=== PATIENT | male | born 1970 | race Caucasian/White ===

== ENCOUNTER 2017-09-17 10:36 | Emergency (ER) | payer MEDICAID, OTHER ==
[2017-09-17] MEDS ORDERED: DIPHTH,PERTUSS(ACELL),TET VAC 0.5 ML VIAL IM ONE ×2 (10:43→11:05)
[2017-09-17 10:46] VITALS: BP 131/71
--- NOTE | 2017-09-17 11:22 | ERNOTE ---
Medical Problem HPI - Narrative Date of Service: 09/17/17 - General Chief Complaint: Laceration Time Seen by Provider: 09/17/17 10:52 Source: patient Exam Limitations: no limitations - Immun/Allergies/Home Medications Immunizations: IMMUNIZATION HX Immunizations Up to Date No History of Influenza Vaccine No Hx Pneumococcal Vaccination No Allergies/Adverse Reactions: Allergies No Known Allergies Allergy (Verified 09/17/17 10:45) Home Medications: HOME MEDICATIONS Cephalexin Monohydrate [Keflex] 500 mg PO QID #40 cap 09/17/17 [Last Taken Unknown] Citalopram Hydrobromide [Celexa] 40 mg PO DAILY 09/17/17 [Last Taken Unknown] Ibuprofen 800 mg PO TID 09/17/17 [Last Taken Unknown] traZODone HCL [Trazodone HCl] 150 mg PO DAILY 09/17/17 [Last Taken Unknown] - History of Present History Narrative: cut finger with knife Timing: constant Severity: moderate Modifying Factors - (Worsens): Present: other - nothing Review of Systems - Narrative Narrative: unremarkable - Review of Systems Constitutional: Present: See HPI EYE: Present: no symptoms reported, blurred vision Respiratory: Present: no symptoms reported Cardiology: Present: no symptoms reported Gastrointestinal/Abdominal: Present: no symptoms reported Genitourinary: Present: no symptoms reported Musculoskeletal: Present: See HPI Skin: Present: no symptoms reported - laceration to right index finger Neurological: Present: no symptoms reported Endocrine: Present: no symptoms reported Hematologic/Lymphatic: Present: no symptoms reported Psych: Present: no symptoms reported All Other Systems: All systems neg except as marked - Narrative Narrative: unremarkable - Patient's Past Medical History Patient History - Medical: Alcohol Abuse, Depression, Headache, Other Patient History - Cardiac/Respiratory: No pertinent hx Patient History - Cancer: No Hx of Cancer Patient History - Surgical Procedures: No surgical history Patient History - Other: None - Family History Mother Family History - Medical: Alcohol Abuse Family History - Cardiac/Respiratory: History Unknown Father Family History - Medical: , Alcohol Abuse Family History - Cardiac/Respiratory: Coronary Heart Disease, Myocardial Infarction Family History - Cancer: No pertinent family hx - Social History Living Situations: home Abuse History: Hx of Substance Use Psych History: No pertinent hx Does anyone smoke in the home?: Yes Smoking Status: Current every day smoker Have you smoked in the past 12 months: Yes Do you dip or chew tobacco: No Patient requests Smoking Cessation Consult: No Initiate information on Smoking Cessation: No Alcohol Use: occasionally Drug Use: none - Immunizations Immunizations Up to Date: No Hx Pneumococcal Vaccination: No History of Influenza Vaccine: No Physical Exam - Physical Exam General Appearance: Present: moderate distress Head Exam: Present: normal inspection, no evidence of injury Eye Exam: Normal inspection: bilateral, PERRL: bilateral, EOMI: bilateral Ears, Nose, Throat: Present: normal ENT inspection Neck: Present: normal inspection, nontender Respiratory: Present: no respiratory distress, normal breath sounds, no accessory muscle use, chest nontender, lungs clear Cardiovascular/Chest: Present: regular rate, rhythm, no murmur, normal peripheral pulses Peripheral Pulses: N=norm/S=strong/W=weak/B=bound/A=absent: Carotid (R): Normal , Carotid (L): Normal, Radial (R): Normal, Radial (L): Normal, Femoral (R): Normal, Femoral (L): Normal, Dorsalis-pedis (R): Normal, Dorsalis-pedis (L): Normal Gastrointestinal/Abdominal: Present: normal bowel sounds, nontender, nondistended, soft, no organomegaly Back Exam: Present: normal inspection, normal range of motion, no CVA tenderness , no vertebral tenderness Extremity Exam: Present: other - 2.5 cm laceration to proximal index finger Neurological Exam: Present: alert, oriented, normal mood/affect, no motor/ sensory deficits DTR: N=norm/NB=norm/brisk/A=abs/DD=dull/dimin/HC=hyperactive: Bicep (R): Normal , Bicep (L): Normal, Tricep (R): Normal, Tricep (L): Normal, Knee (R): Normal, Knee (L): Normal, Ankle (R): Normal, Ankle (L): Normal Skin Exam: Present: normal color, warm/dry Lymphatic Exam: Present: no adenopathy ED Progress - Date and Time Seen: Date and Time: 09/17/17 11:18 patient improved - Vital Signs Patient's Vital Signs:: I have reviewed the patient's vital signs. Vital Signs: Vital Signs 09/17/17 10:41 Pulse Rate 104 H Respiratory 18 Rate Blood Pressure 131/71 O2 Sat by Pulse 96 Oximetry - Progress/Reassessment Chief Complaint: Laceration Progress:: Improved - Transfer of Care Expected Disposition: Discharge Procedures Right 1st Digit Anesthesia: 1% Lidocaine I & D Prep: betadine prep Wound's Depth/Shape: superficial, linear Wound Explored: clean Wound Intervention: irrigated w/saline Foreign body identified: other - none Distal NVT: neuro/vasc intact Suture Size/Type: 3-0 Number of Sutures: 4 Layer Closure: Simple Wound Dressing: sterile dressing applied Complications: Pt marquita procedure well Plan - Plan Plan: to be discharged Departure Clinical Impression: Laceration of finger - Departure Disposition: Home self-care Condition: Fair Instructions: Stab Wound, Laceration Care, Adult, [id number] Prescriptions: Cephalexin Monohydrate [Keflex] 500 mg PO QID #40 cap
== END 2017-09-17 11:33 | disposition home or self-care (01) ==
LOC: ER 10:36
PROC: 0HQFXZZ Repair Right Hand Skin, External Approach (ICD-10-PCS; principal; 2017-09-17)
DX: S61.210A Laceration without foreign body of right index finger without damage to nail, initial encounter (principal); F17.200 Nicotine dependence, unspecified, uncomplicated; F32.9 Major depressive disorder, single episode, unspecified; W26.0XXA Contact with knife, initial encounter; Y93.89 Activity, other specified; Z23 Encounter for immunization